=== PATIENT | female | born 1950 | race African-American/Black ===

== ENCOUNTER 2025-02-03 21:50 | Inpatient (IN) | payer MEDICARE, MEDICAID ==
[~2025-02-03] VITALS: Ht 167.6 cm; Wt 96.2 kg
[~2025-02-03 21:50] MED LIST: ALBU18HF2 IH; ALPR0.25 PO; APIX5TAB PO; ASPI-1406 PO; CLOP75TA33 PO; DOCU100T MT; FERR325T6 PO; FOLI-43 PO; FURO-151 PO; LIP40 PO; LOSA25TA26 PO; MAGN400C MT; MERO1PIG IV; METO-396 PO; PANT40TA51 PO; POTA-204 PO; SPIR25TA6 PO; SUCR1TAB PO; THIA100T72 PO
[2025-02-03 22:00] VITALS: BP 134/67; PULSE 76; RESP 18; TEMP 36.696; TEMP 36.7; O2SAT 95
[2025-02-03] MEDS ORDERED: ONDANSETRON HCL 4MG/2ML INJ IV PRN (22:30)
[2025-02-03] MEDS ORDERED: NALOXONE HCL 0.4MG/ML 1ML VIAL IV PRN (22:30)
[2025-02-03] MEDS ORDERED: MAGNESIUM/ALUMINUM HYDROXIDE/SIMETHICONE 30ML UDC PO PRN (22:45)
[2025-02-03] MEDS ORDERED: CLONIDINE 0.1MG TABLET PO PRN (22:45)
[2025-02-03] MEDS ORDERED: NALOXONE HCL 0.4MG/ML VIAL IV PRN (23:00)
[2025-02-03] MEDS: HYDROCODONE/ACETAMINOPHEN 5/325MG TABLET PO PRN (23:04)
[2025-02-04] MEDS: MEROPENEM 1G/100ML 100 ML IV SCH (02:08)
[2025-02-04 05:15] LABS: CREATININE 0.8 mg/dL (0.6-1.0)
[2025-02-04 05:16] LABS: UREA NITROGEN BLOOD 8 mg/dL (9-23)
[2025-02-04 05:18] LABS: ASPARTATE AMINOTRANSFERASE 19 IU/L (<34); BILIRUBIN TOTAL 0.8 mg/dL (0.1-1.0); PHOSPHORUS 2.2 mg/dL (2.5-4.9); PROTEIN TOTAL 5.4 g/dL (6.0-8.3)
[2025-02-04 05:26] LABS: BASOPHILS % 0.6 % (0.0-2.0); EOSINOPHILS % 2.9 % (0.0-5.0); HEMATOCRIT. 29.3 % (36.0-48.0); HEMOGLOBIN. 8.8 g/dL (12.0-16.0); LYMPHOCYTES % 10.8 % (20.0-50.0); MEAN PLATELET VOLUME 8.7 fl (7.4-10.4); MONOCYTES % 9.3 % (2.0-8.0); NEUTROPHILS % 76.4 % (40.0-76.0); PLATELET 194 x1000/uL (130-400); RED BLOOD CELL COUNT 3.57 mill/uL (4.2-5.4); RED CELL DISTRIBUTION WIDTH 18.2 % (11.6-14.6)
[2025-02-04] MEDS: SUCRALFATE 1G TABLET PO SCH (06:56)
[2025-02-04] MEDS: HYDROCORTISONE 2.5% RECTAL CREAM 28GM PR SCH (06:57)
[2025-02-04 08:00] VITALS: BP 124/65; PULSE 79; RESP 18; TEMP 36.7; O2SAT 95
[2025-02-04] MEDS: POTASSIUM CHLORIDE 20MEQ TABLET SR PO SCH (08:34)
[2025-02-04] MEDS: ASCORBIC ACID 250 MG TABLET PO SCH (08:34)
[2025-02-04] MEDS: APIXABAN 5 MG TABLET PO SCH (08:34)
[2025-02-04] MEDS: ASPIRIN 81MG TABLET PO SCH (08:34)
[2025-02-04] MEDS: METOPROLOL TARTRATE 25MG TABLET PO SCH (08:35)
[2025-02-04] MEDS: FOLIC ACID 1MG TABLET PO SCH (08:35)
[2025-02-04] MEDS: FERROUS SULFATE 325MG TABLET PO SCH (08:35)
[2025-02-04] MEDS: FUROSEMIDE 40MG/4ML VIAL IVP SCH (08:35)
[2025-02-04] MEDS: PANTOPRAZOLE SODIUM 40 MG/VIAL IV SCH (08:37)
[2025-02-04] MEDS: AMLODIPINE 5MG TABLET PO SCH (08:53)
[2025-02-04] MEDS ORDERED: ASCORBIC ACID 250 MG TABLET PO SCH (09:00)
[2025-02-04] MEDS ORDERED: THIAMINE HCL 100MG TABLET PO SCH (09:00)
[2025-02-04] MEDS ORDERED: POTASSIUM CHLORIDE 20MEQ TABLET SR PO SCH (09:00)
[2025-02-04] MEDS: MAGNESIUM 4 G PREMIX 100 ML IV SCH (09:47)
[2025-02-04] MEDS: AMLODIPINE 2.5MG TABLET PO SCH (11:34)
[2025-02-04] MEDS: THIAMINE HCL 100MG TABLET PO SCH (13:16)
[2025-02-04] MEDS: ALPRAZOLAM 0.25 MG TABLET PO PRN (13:16)
[2025-02-04] MEDS: POTASSIUM PHOSPHATE 30 MMOL in SODIUM CHLORIDE 0.9% 490 ML IV SCH (18:04)
[2025-02-04 20:00] VITALS: BP 114/60; PULSE 70; RESP 18; TEMP 36.2; O2SAT 97
[2025-02-04] MEDS: ATORVASTATIN CALCIUM 40MG TABLET PO SCH (22:16)
[2025-02-05 04:25] LABS: CLARITY URINE CLEAR (CLEAR); COLOR URINE YELLOW (YELLOW); GLUCOSE URINE NEGATIVE (NEGATIVE); KETONES URINE TRACE (NEGATIVE); LEUKOCYTE ESTERASE URINE NEGATIVE (NEGATIVE); NITRITE URINE NEGATIVE (NEGATIVE); OCCULT BLOOD URINE 3+ (NEGATIVE); PH URINE 5.5 (4.5-8.0); PROTEIN URINE 1+ (NEGATIVE); SPECIFIC GRAVITY URINE 1.015 (1.005-1.030); UROBILINOGEN URINE 0.2 E.U./dL (0.2-1.0)
[2025-02-05 05:08] LABS: BACTERIA URINE TRACE; RBC URINE 15-25 /hpf (0-2); SQUAMOUS EPITHELIAL CELL URINE 2+ /lpf (RARE/1+)
[2025-02-05 05:09] LABS: WBC URINE 0-2 /hpf (0-2); YEAST URINE 1+
[2025-02-05 05:10] LABS: FINE GRANULAR CASTS URINE 0-5 /lpf
[2025-02-05] MEDS: ACETAMINOPHEN 325MG TABLET PO PRN (05:56)
[2025-02-05 08:00] VITALS: BP 142/68; PULSE 76; RESP 18; TEMP 37.2; O2SAT 98
[2025-02-05] MEDS: VANCOMYCIN 125MG/2.5ML ORAL SYR PO SCH (12:16)
[2025-02-05 16:51] LABS: BASOPHILS % 0.5 % (0.0-2.0); EOSINOPHILS % 2.6 % (0.0-5.0); HEMATOCRIT. 33.7 % (36.0-48.0); HEMOGLOBIN. 10.2 g/dL (12.0-16.0); LYMPHOCYTES % 15.0 % (20.0-50.0); MEAN PLATELET VOLUME 8.6 fl (7.4-10.4); MONOCYTES % 9.0 % (2.0-8.0); NEUTROPHILS % 72.9 % (40.0-76.0); PLATELET 221 x1000/uL (130-400); RED BLOOD CELL COUNT 4.14 mill/uL (4.2-5.4); RED CELL DISTRIBUTION WIDTH 17.7 % (11.6-14.6)
[2025-02-05 16:58] LABS: CREATININE 0.9 mg/dL (0.6-1.0)
[2025-02-05 16:59] LABS: UREA NITROGEN BLOOD 8 mg/dL (9-23)
[2025-02-05 17:00] LABS: ASPARTATE AMINOTRANSFERASE 20 IU/L (<34)
[2025-02-05 17:01] LABS: BILIRUBIN TOTAL 0.6 mg/dL (0.1-1.0); PHOSPHORUS 2.1 mg/dL (2.5-4.9); PROTEIN TOTAL 7.0 g/dL (6.0-8.3)
[2025-02-05 17:02] LABS: FOLIC ACID (FOLATE) SERUM > 20.00 ng/mL (>5.38)
[2025-02-05 17:03] LABS: VITAMIN B12 SERUM 1040 pg/mL (211-911)
[2025-02-05 20:00] VITALS: BP 114/62; PULSE 70; RESP 18; TEMP 36.7; O2SAT 98
[2025-02-06 08:00] VITALS: BP 145/75; PULSE 80; RESP 18; TEMP 36.4; O2SAT 100
[2025-02-06 08:03] LABS: BASOPHILS % 0.4 % (0.0-2.0); EOSINOPHILS % 2.6 % (0.0-5.0); HEMATOCRIT. 31.2 % (36.0-48.0); HEMOGLOBIN. 9.4 g/dL (12.0-16.0); LYMPHOCYTES % 18.5 % (20.0-50.0); MEAN PLATELET VOLUME 8.7 fl (7.4-10.4); MONOCYTES % 11.6 % (2.0-8.0); NEUTROPHILS % 66.9 % (40.0-76.0); PLATELET 177 x1000/uL (130-400); RED BLOOD CELL COUNT 3.86 mill/uL (4.2-5.4); RED CELL DISTRIBUTION WIDTH 17.1 % (11.6-14.6)
[2025-02-06 08:16] LABS: CREATININE 0.9 mg/dL (0.6-1.0); UREA NITROGEN BLOOD 8 mg/dL (9-23)
[2025-02-06 20:00] VITALS: BP 118/61; PULSE 70; RESP 18; TEMP 36.6; O2SAT 98
[2025-02-06] MEDS: ZINC OXIDE 20% OINT 30GM TOP SCH (21:24)
[2025-02-07 08:00] VITALS: BP 113/50; PULSE 67; RESP 17; TEMP 37.2; O2SAT 93
[2025-02-07 11:25] LABS: BASOPHILS % 0.9 % (0.0-2.0); EOSINOPHILS % 2.5 % (0.0-5.0); HEMATOCRIT. 30.9 % (36.0-48.0); HEMOGLOBIN. 9.3 g/dL (12.0-16.0); LYMPHOCYTES % 18.3 % (20.0-50.0); MEAN PLATELET VOLUME 8.4 fl (7.4-10.4); MONOCYTES % 9.6 % (2.0-8.0); NEUTROPHILS % 68.7 % (40.0-76.0); PLATELET 166 x1000/uL (130-400); RED BLOOD CELL COUNT 3.85 mill/uL (4.2-5.4); RED CELL DISTRIBUTION WIDTH 16.9 % (11.6-14.6)
[2025-02-07 11:42] LABS: CREATININE 0.9 mg/dL (0.6-1.0); UREA NITROGEN BLOOD 8 mg/dL (9-23)
[2025-02-07 20:00] VITALS: BP 144/62; PULSE 82; RESP 18; TEMP 37.1; O2SAT 95
[2025-02-08 08:00] VITALS: BP 129/61; PULSE 100; RESP 18; TEMP 36.6; O2SAT 95
[2025-02-08] MEDS: FUROSEMIDE 40MG TABLET PO SCH ×2 (09:00→17:29)
[2025-02-08] MEDS: PANTOPRAZOLE 40MG DR TABLET PO SCH (12:33)
[2025-02-08 20:00] VITALS: BP 116/55; PULSE 82; RESP 18; TEMP 37.8; O2SAT 98
[2025-02-09 08:00] VITALS: BP 126/72; PULSE 76; RESP 18; TEMP 35.9; O2SAT 95
[2025-02-09] MEDS: HYDROCODONE/ACETAMINOPHEN 5/325MG TABLET PO PRN (14:11)
[2025-02-09 20:00] VITALS: BP 127/63; PULSE 68; RESP 18; TEMP 36.5; O2SAT 94
[2025-02-09] MEDS ORDERED: ALPRAZOLAM 0.25 MG TABLET PO PRN (23:15)
[2025-02-10 06:55] LABS: BASOPHILS % 0.8 % (0.0-2.0); EOSINOPHILS % 2.7 % (0.0-5.0); HEMATOCRIT. 32.2 % (36.0-48.0); HEMOGLOBIN. 10.0 g/dL (12.0-16.0); LYMPHOCYTES % 19.7 % (20.0-50.0); MEAN PLATELET VOLUME 8.6 fl (7.4-10.4); MONOCYTES % 11.6 % (2.0-8.0); NEUTROPHILS % 65.2 % (40.0-76.0); PLATELET 199 x1000/uL (130-400); RED BLOOD CELL COUNT 4.08 mill/uL (4.2-5.4); RED CELL DISTRIBUTION WIDTH 16.7 % (11.6-14.6)
[2025-02-10 07:14] LABS: CREATININE 0.8 mg/dL (0.6-1.0); UREA NITROGEN BLOOD < 5 mg/dL (9-23)
[2025-02-10 07:16] LABS: PHOSPHORUS 2.9 mg/dL (2.5-4.9)
[2025-02-10 08:00] VITALS: BP 142/64; PULSE 77; RESP 18; TEMP 36.2; O2SAT 95
[2025-02-10] MEDS: FUROSEMIDE 40MG TABLET PO SCH (09:00)
[2025-02-10] MEDS: POTASSIUM CHLORIDE 20MEQ TABLET SR PO SCH (09:49)
[2025-02-10] MEDS: MAGNESIUM 4 G PREMIX 100 ML IV SCH (13:30)
[2025-02-10 20:00] VITALS: BP 117/64; PULSE 64; RESP 20; TEMP 36.9; O2SAT 96
[2025-02-11 05:33] LABS: CREATININE 1.0 mg/dL (0.6-1.0); UREA NITROGEN BLOOD 6 mg/dL (9-23)
[2025-02-11 08:00] VITALS: BP 126/63; PULSE 71; RESP 20; TEMP 36.3; O2SAT 96
[2025-02-11] MEDS: POTASSIUM CHLORIDE 20MEQ TABLET SR PO NR (09:07)
[2025-02-11] MEDS: MAGNESIUM 4 G PREMIX 100 ML IV NR (09:33)
[2025-02-11] MEDS ORDERED: LIDOCAINE HCL 1% 10 MG/ML 10ML VIAL ONE (12:59)
[2025-02-11 20:00] VITALS: BP 115/50; PULSE 80; RESP 18; TEMP 36.6; O2SAT 96
[2025-02-12] MEDS ORDERED: POTA-204 PO (07:19)
[2025-02-12] MEDS ORDERED: FERR-63 PO (07:19)
[2025-02-12] MEDS ORDERED: MAGN400C MT (07:19)
[2025-02-12] MEDS ORDERED: METO-396 PO (07:19)
[2025-02-12] MEDS ORDERED: ANUHCC PR (07:19)
[2025-02-12] MEDS ORDERED: FURO40TA5 PO (07:19)
[2025-02-12] MEDS ORDERED: AMLO2.5T45 PO (07:19)
[2025-02-12] MEDS ORDERED: PANT40TA51 PO (07:19)
[2025-02-12] MEDS ORDERED: THIA100T72 PO (07:19)
[2025-02-12] MEDS ORDERED: VANC125C18 MT (07:19)
[2025-02-12] MEDS ORDERED: SUCR1TAB PO (07:19)
[2025-02-12] MEDS ORDERED: FOLI-43 PO (07:19)
[2025-02-12 08:00] VITALS: BP 133/62; PULSE 75; RESP 18; TEMP 36.5; O2SAT 96
[2025-02-12 09:06] LABS: CREATININE 1.0 mg/dL (0.6-1.0)
[2025-02-12 09:07] LABS: UREA NITROGEN BLOOD 6 mg/dL (9-23)
[2025-02-12 09:09] LABS: PHOSPHORUS 3.1 mg/dL (2.5-4.9)
[2025-02-12 09:36] VITALS: BP 125/64; PULSE 64; RESP 18; TEMP 97.7
[2025-02-12] MEDS: MAGNESIUM OXIDE 400MG TABLET PO SCH (11:38)
[2025-02-12] MEDS: POTASSIUM CHLORIDE 20MEQ/PACKET PO NR (11:38)
[2025-02-12 12:07] LABS: BASOPHILS % 0.8 % (0.0-2.0); EOSINOPHILS % 3.0 % (0.0-5.0); HEMATOCRIT. 33.9 % (36.0-48.0); HEMOGLOBIN. 10.2 g/dL (12.0-16.0); LYMPHOCYTES % 16.3 % (20.0-50.0); MEAN PLATELET VOLUME 8.7 fl (7.4-10.4); MONOCYTES % 11.7 % (2.0-8.0); NEUTROPHILS % 68.2 % (40.0-76.0); PLATELET 215 x1000/uL (130-400); RED BLOOD CELL COUNT 4.23 mill/uL (4.2-5.4); RED CELL DISTRIBUTION WIDTH 16.7 % (11.6-14.6)
== END 2025-02-12 11:50 | disposition home health service (06) | DRG 91 ==
PROVIDERS: ADMIT Physical Medicine & Rehabilitation Spinal Cord Injury Medicine; ATTEND Internal Medicine
DX: G92.8 Other toxic encephalopathy (principal); A41.9 Sepsis, unspecified organism; G82.50 Quadriplegia, unspecified; I21.4 Non-ST elevation (NSTEMI) myocardial infarction; J18.9 Pneumonia, unspecified organism; J96.01 Acute respiratory failure with hypoxia; R65.21 Severe sepsis with septic shock; A04.72 Enterocolitis due to Clostridium difficile, not specified as recurrent; E66.2 Morbid (severe) obesity with alveolar hypoventilation; E87.0 Hyperosmolality and hypernatremia; I13.0 Hypertensive heart and chronic kidney disease with heart failure and stage 1 through stage 4 chronic kidney disease, or unspecified chronic kidney disease; I50.32 Chronic diastolic (congestive) heart failure; I82.509 Chronic embolism and thrombosis of unspecified deep veins of unspecified lower extremity; N17.9 Acute kidney failure, unspecified; B37.49 Other urogenital candidiasis; E87.1 Hypo-osmolality and hyponatremia; E87.20 Acidosis, unspecified; F03.93 Unspecified dementia, unspecified severity, with mood disturbance; F03.94 Unspecified dementia, unspecified severity, with anxiety; F33.1 Major depressive disorder, recurrent, moderate; J44.0 Chronic obstructive pulmonary disease with (acute) lower respiratory infection; E11.22 Type 2 diabetes mellitus with diabetic chronic kidney disease; E11.649 Type 2 diabetes mellitus with hypoglycemia without coma; D64.9 Anemia, unspecified; E83.42 Hypomagnesemia; E87.5 Hyperkalemia; N18.9 Chronic kidney disease, unspecified; B96.89 Other specified bacterial agents as the cause of diseases classified elsewhere; E78.5 Hyperlipidemia, unspecified; E87.6 Hypokalemia; F10.20 Alcohol dependence, uncomplicated; F17.200 Nicotine dependence, unspecified, uncomplicated; F41.1 Generalized anxiety disorder; I25.10 Atherosclerotic heart disease of native coronary artery without angina pectoris; I48.0 Paroxysmal atrial fibrillation; J38.4 Edema of larynx; K57.30 Diverticulosis of large intestine without perforation or abscess without bleeding; K64.9 Unspecified hemorrhoids; K74.60 Unspecified cirrhosis of liver; R13.10 Dysphagia, unspecified; M48.54XG Collapsed vertebra, not elsewhere classified, thoracic region, subsequent encounter for fracture with delayed healing; R26.9 Unspecified abnormalities of gait and mobility; R42 Dizziness and giddiness; R00.1 Bradycardia, unspecified; T18.9XXD Foreign body of alimentary tract, part unspecified, subsequent encounter; W44 Foreign body entering into or through a natural orifice; Z68.38 Body mass index [BMI] 38.0-38.9, adult; Z79.01 Long term (current) use of anticoagulants; Z79.82 Long term (current) use of aspirin; Z79.899 Other long term (current) drug therapy; Z86.73 Personal history of transient ischemic attack (TIA), and cerebral infarction without residual deficits; Z90.49 Acquired absence of other specified parts of digestive tract; Z91.81 History of falling; Z95.5 Presence of coronary angioplasty implant and graft
CPT/HCPCS: 36415; 71045; 80048; 80053; 81003; 82140; 82306; 82550; 82607; 82728; 82746; 83036; 83540; 83550; 83735; 84100; 84134; 84145; 84443; 85025; 87045; 87449; 87493; 89055; 92523; 92610; 97110; 97116; 97162; 97166; 97530; 97535; A4606; J1938; J2003; J2185; J2470; J3373; J3475; J3490; J7040